=== PATIENT | female | born 1990 | race Caucasian/White ===

== ENCOUNTER 2022-11-26 04:28 | Emergency (ER) | payer SELFPAY ==
--- NOTE | 2022-11-26 04:45 | EDPHYS ---
Physician Documentation [facility] Name: Gisele Damico Age: 32 yrs Sex: Female : 1990 Arrival Date: 11/26/2022 Time: 04:28 Bed 1 Private MD: ED Physician Vasu Vega HPI: 11/26 04:36 This 32 yrs old Female presents to ER via Unassigned with complaints of malou active labor, ctx q 15 min. 04:36 The patient presents to the emergency department with possible uterine contractions. malou The estimated gestational age is 40 weeks. course: care: unk. Previous pregnancies: in previous pregnancies patient has had vaginal delivery. Associated signs and symptoms: Pertinent positives: active labor. The patient has experienced similar episodes in the past, several times. 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 - Social history:: Smoking status: unknown. - Family history:: not pertinent. ROS: 04:36 Constitutional: Negative for fever, chills, and weight loss, Eyes: Negative for injury, malou pain, redness, and discharge, ENT: Negative for injury, pain, and discharge, Neck: Negative for injury, pain, and swelling, Cardiovascular: Negative for chest pain, palpitations, and edema, Respiratory: Negative for shortness of breath, cough, wheezing, and pleuritic chest pain, Back: Negative for injury and pain, : Negative for injury, bleeding, discharge, and swelling, MS/Extremity: Negative for injury and deformity, Skin: Negative for injury, rash, and discoloration, Neuro: Negative for headache, weakness, numbness, tingling, and seizure, Psych: Negative for depression, anxiety, suicide ideation, homicidal ideation, and hallucinations, Allergy/Immunology: Negative for hives, rash, and allergies, Endocrine: Negative for neck swelling, polydipsia, polyuria, polyphagia, and marked weight changes, Hematologic/Lymphatic: Negative for swollen nodes, abnormal bleeding, and unusual bruising. 04:36 Abdomen/GI: Positive for abdominal cramps, abdominal distension. Exam: 04:36 Constitutional: This is a well developed, well nourished patient who is awake, alert, malou and in no acute distress. Head/Face: Normocephalic, atraumatic. Eyes: Pupils equal round and reactive to light, extra-ocular motions intact. Lids and lashes normal. Conjunctiva and sclera are non-icteric and not injected. Cornea within normal limits. Periorbital areas with no swelling, redness, or edema. ENT: Nares patent. No nasal discharge, no septal abnormalities noted. Tympanic membranes are normal and external auditory canals are clear. Oropharynx with no redness, swelling, or masses, exudates, or evidence of obstruction, uvula midline. Mucous membranes moist. Neck: Trachea midline, no thyromegaly or masses palpated, and no cervical lymphadenopathy. Supple, full range of motion without nuchal rigidity, or vertebral point tenderness. No Meningismus. Chest/axilla: Normal chest wall appearance and motion. Nontender with no deformity. No lesions are appreciated. Cardiovascular: Regular rate and rhythm with a normal S1 and S2. No gallops, murmurs, or rubs. Normal PMI, no JVD. No pulse deficits. Respiratory: Lungs have equal breath sounds bilaterally, clear to auscultation and percussion. No rales, rhonchi or wheezes noted. No increased work of breathing, no retractions or nasal flaring. Back: No spinal tenderness. No costovertebral tenderness. Full range of motion. Female : Normal external genitalia. Skin: Warm, dry with normal turgor. Normal color with no rashes, no lesions, and no evidence of cellulitis. MS/ Extremity: Pulses equal, no cyanosis. Neurovascular intact. Full, normal range of motion. Neuro: Awake and alert, GCS 15, oriented to person, place, time, and situation. Cranial nerves II-XII grossly intact. Motor strength 5/5 in all extremities. Sensory grossly intact. Cerebellar exam normal. Normal gait. Psych: Awake, alert, with orientation to person, place and time. Behavior, mood, and affect are within normal limits. 04:36 Abdomen/GI: Inspection: gravid appearance, Bowel sounds: normal, Liver: no appreciated palpable abnormalities, Hernia: not appreciated, refused to get in the bed. Vital Signs: 04:37 lg3 04:37 pt refused all vitals lg3 MDM: 04:36 Patient medically screened. malou 04:40 Differential diagnosis: delivery of infant, Data reviewed: vital signs, nurses notes. malou Consideration of Admission/Observation Escalation of care including admission/observation considered. I considered the following discharge prescriptions or medication management in the emergency department Medications were administered in the Emergency Department. See MAR. Test considered but Not performed: Labs: pt refused everything. Care significantly affected by the following chronic conditions: none. Counseling: I had a detailed discussion with the patient and/or guardian regarding: the historical points, exam findings, and any diagnostic results supporting the discharge/admit diagnosis, the need to transfer to another facility, for higher level of care, [facility] does not immediately have the required specialist. 04:46 ED course: pt explained all risk of driving to [employer], need to transfer for safety of [facility] mom and baby , pt refused and walked out , call to dr roz mantilla to [facility]. Administered Medications: No medications were administered Disposition Summary: 11/26/22 04:45 Discharge Ordered Location: Home malou Problem: new malou Symptoms: are unchanged malou Condition: Undetermined malou Diagnosis - 40 weeks gestation of malou - Precipitate labor - active labor malou Followup: malou - With: Private Physician - When: Upon discharge from the Emergency Department - Reason: Recheck today's complaints, Continuance of care, Re-evaluation by your physician Discharge Instructions: - Discharge Summary Sheet malou - Signs and Symptoms of Labor malou Forms: - Medication Reconciliation Form malou - Thank You Letter malou - Antibiotic Education malou - Prescription Opioid Use malou Signatures: Vasu Vgea MD MD cha Gibson, Lacie, RN RN lg3
--- NOTE | 2022-11-26 04:45 | ER ---
Nurse's Notes [facility] Name: Gisele Damico Age: 32 yrs Sex: Female : 1990 Arrival Date: 11/26/2022 Time: 04:28 Bed 1 Private MD: Diagnosis: 40 weeks gestation of ;Precipitate labor-active labor Presentation: 11/26 04:37 Chief complaint: Patient states: im 40 weeks, due on November 23 and im having lg3 contractions every 15-20 min. Coronavirus screen: Client denies travel out of the [place] in the last 14 days. At this time, the client does not indicate any symptoms associated with coronavirus-19. Ebola Screen: No symptoms or risks identified at this time. Initial Sepsis Screen: Does the patient meet any 2 criteria? No. Patient's initial sepsis screen is negative. Does the patient have a suspected source of infection? No. Patient's initial sepsis screen is negative. Risk Assessment: Do you want to hurt yourself or someone else? Patient reports no desire to harm self or others. Onset of symptoms was November 26, 2022. 04:37 Method Of Arrival: Ambulatory lg3 04:37 Acuity: JESU 3 lg3 Triage Assessment: 04:42 General: Appears in no apparent distress. uncomfortable, Behavior is calm, cooperative. lg3 Pain: Complains of pain in abdomen. Neuro: No deficits noted. [place] Agitation-Sedation Scale (RASS): 0 - Alert and Calm Level of Consciousness is awake, alert, obeys commands, Oriented to person, place, time, situation. Cardiovascular: No deficits noted. Denies chest pain, shortness of breath. Respiratory: No deficits noted. Airway is patent Respiratory effort is even, unlabored, Respiratory pattern is regular, symmetrical. GI: Abdomen is round Reports lower abdominal pain, cramping. : No deficits noted. Derm: No deficits noted. Musculoskeletal: No deficits noted. Circulation, motion, and sensation intact. Range of motion: intact in all extremities. 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 - Social history:: Smoking status: unknown. - Family history:: not pertinent. Assessment: 04:46 General: on entering PT room, PT stated she was not staying here and having anything lg3 done just to be transferred to another facility and refused all medical intervention/treatment. physician notified. pt then ambulated to nurses station, notified physician of wishes and left emergency department. . Vital Signs: 04:37 lg3 04:37 pt refused all vitals lg3 ED Course: 04:35 Patient arrived in ED. rv1 04:36 Vasu Vega MD is Attending Physician. [facility] 04:42 Triage completed. lg3 Administered Medications: No medications were administered Outcome: 04:45 Discharge ordered by . [facility] 04:51 Patient left the ED. lg3 Signatures: Vasu Vega MD MD cha Gibson, Lacie, RN RN lg3 Kristen Aguilar rv1
== END 2022-11-26 04:51 | disposition home or self-care (01) ==
LOC: ER 04:28
DX: O62.3 Precipitate labor (principal)